=== PATIENT | female | born 1955 | race Caucasian/White ===

== ENCOUNTER 2021-12-03 09:15 | Outpatient (CLI) | payer MEDICARE, BC, SELFPAY | END 2021-12-03 09:16 | disposition home or self-care (01) | PROVIDERS: PCP Family Medicine; Visit Provider Internal Medicine Gastroenterology | DX: Z12.11 Encounter for screening for malignant neoplasm of colon (principal); K57.30 Diverticulosis of large intestine without perforation or abscess without bleeding | CPT/HCPCS: 45378; J2250; J3010 ==

== ENCOUNTER 2021-12-16 07:16 | Emergency (ER) | payer MEDICARE, BC, SELFPAY ==
[2021-12-16 07:31] VITALS: BP 156/83; PULSE 80; RESP 20; TEMP 37.7; O2SAT 96; BMI 45.2
--- NOTE | 2021-12-16 07:58 | ED_ITS ---
HPI - General Adult General Time Seen by Provider: 07:58 Date Seen: 12/16/21 Chief complaint: Dental/Oral/Mouth Injury/Pain Stated complaint: Bleeding from mouth after oral surgery Time Seen by Provider: 12/16/21 07:52 Source: patient Mode of arrival: ambulatory Limitations: no limitations History of Present Illness HPI narrative: The patient is a 58 year white female who has had dental procedure yesterday. She is on Coumadin for atrial fibrillation, she had held for 2 days prior to procedure, related did some bone grafting. Her left jaw. They found some infe ction, she is on antibiotics, she started the half of Coumadin tablet yesterday, and noted bleeding this morning, it seemed to have stopped at this point. No lightheadedness dizziness, or chest pain or breathing problem. Related Data Home Medications Medication Instructions Recorded Confirmed atorvastatin 40 mg tablet mg 12/16/21 lisinopril 30 mg tablet mg 12/16/21 metoprolol tartrate 100 mg tablet mg 12/16/21 warfarin 7.5 mg tablet mg 12/16/21 Allergies Allergy/AdvReac Type Severity Reaction Status Date / Time No Known Drug Allergies Allergy Verified 12/03/21 13:00 Review of Systems Status of ROS: Reports: 6 or more systems reviewed and unremarkable except as noted in History and below [facility], [facility] Medical History Atrial fibrillation High blood pressure Hypercholesteremia Liver cyst Social History Smoking Status: Never smoker How often do you have a drink containing alcohol: 2-3 times a week AUDIT-C Alcohol total score: 3 Non-prescribed substance use: denies use Exam Narrative: Exam Narrative: Objective: The patient has some recent evidence of bleeding around her gumline on the left upper jaw and laterally there appears to be stitches present, there is no arterial bleeding no venous oozing at this point. The patient has had a gauze pack in her mouth area. There is no generalized swelling of her throat, neck is supple Const: Vital Signs, click to edit/add: Vital Signs - 24 hr 12/16/21 07:31 Temperature 99.8 F H Pulse Rate [Pulse Oximeter] 80 Respiratory Rate 20 Blood Pressure [Ri ght Upper Arm] 156/83 H Pulse Oximetry 96 Course Vital Signs Vital signs: Initial Vital Signs Temperature 99.8 F H 12/16/21 07:31 Temperature Source Temporal Artery Scan 12/16/21 07:31 Pulse Rate 80 12/16/21 07:31 Respiratory Rate 20 12/16/21 07:31 Blood Pressure 156/83 H 12/16/21 07:31 Blood Pressure Mean 107 12/16/21 07:31 Blood Pressure Position Supine 12/16/21 07:31 Pulse Oximetry 96 12/16/21 07:31 Oxygen Delivery Method 12/16/21 07:31 Vital Signs Temperature 99.8 F H 12/16/21 07:31 Pulse Rate 80 12/16/21 07:31 Respiratory Rate 20 12/16/21 07:31 Blood Pressure 156/83 H 12/16/21 07:31 Pulse Oximetry 96 12/16/21 07:31 Temperature 99.8 F H 12/16/21 07:31 Pulse Rate 80 12/16/21 07:31 Respiratory Rate 20 12/16/21 07:31 Blood Pressure 156/83 H 12/16/21 07:31 Pulse Oximetry 96 12/16/21 07:31 Medical Decision Making MDM Narrative Medical decision making narrative: The patient pretty complex dental surgery with bone grafting and stitches yesterday, now her bleeding seems of stopped she did take Coumadin last night a half tablet. Will observe in the ED for a period of time she does not bleed further I think preps holding the Coumadin today and then restarting tomorrow would be reasonable. The patient has had no further bleeding, should be sent home with some gauze packs that she can put in cheek area should she have any oozing or other changes, she should return if problems or concerns, hold Coumadin today and tomorrow until she talks or dark regular doctor. Return sooner problems or concerns thanks Discharge Plan Discharge Clinical Impression: Post-op bleeding Patient Disposition: Home w/ Parent or Adult Condition: Stable Additional Instructions: Patient will hold Coumadin today restart half dose tomorrow, call her primary care doctor for further instructions at that time, light activity, light diet Activity Level: Light activity Discharge Diet: Full Liquid Prescriptions: No Action atorvastatin 40 mg tablet 0RF metoprolol tartrate 100 mg tablet 0RF warfarin 7.5 mg tablet 0RF lisinopril 30 mg tablet 0RF Follow Up/Referrals: Sonia Riggins DO [Primary Care Provider] - Stand Alone Forms: AVI[employer] Info Instructions
== END 2021-12-16 08:59 | disposition home or self-care (01) ==
LOC: ED 08:15
PROVIDERS: Emergency Provider Family Medicine; PCP Family Medicine
DX: Z53.8 Procedure and treatment not carried out for other reasons (principal)
CPT/HCPCS: 99281; 99283

== ENCOUNTER 2021-12-16 18:57 | Emergency (ER) | payer MEDICARE, BC, SELFPAY ==
[2021-12-16 19:10] VITALS: BP 138/94; PULSE 90; RESP 14; TEMP 36.9; O2SAT 98; BMI 45.2
[2021-12-16] MEDS: TRANEXAMIC ACID 100 MG/ML INJ 1000 MG TOPICAL (19:36)
--- NOTE | 2021-12-16 19:44 | ED_ITS ---
HPI - General Adult General Time Seen by Provider: 19:44 <Charles Ortega MD - Last Filed: 12/16/21 19:47> Date Seen: 12/16/21 <Charles Ortega MD - Last Filed: 12/16/21 19:47> Chief complaint: Post Op Complication <Charles Ortega MD - Last Filed: 12/16/21 19:47> Stated complaint: BLEEDING FROM MOUTH AFTER ORAL SURGERY <Charles Ortega MD - Last Filed: 12/16/21 19:47> Time Seen by Provider: 12/16/21 19:15 <Charles Ortega MD - Last Filed: 12/16/21 19:47> Source: patient <Charles Ortega MD - Last Filed: 12/16/21 19:47> Mode of arrival: ambulatory <Charles Ortega MD - Last Filed: 12/16/21 19:47> Limitations: no limitations <Charles Ortega MD - Last Filed: 12/16/21 19:47> History of Present Illness HPI narrative: Patient presents with recurrent bleeding her left gums. She had a tooth extraction and some bone grafting by a dentist yesterday. She was seen earlier today and the bleeding seemed to have stopped, over the last hour so it has bled again. She did take her Coumadin half dose today, with but was to hold it after today. Patient denies dizziness or lightheadedness at this time. Please see the prior note from today <Charles Ortega MD - Last Filed: 12/16/21 19:47> Related Data Home medications: Home Medications Medication Instructions Recorded Confirmed atorvastatin 40 mg tablet mg 12/16/21 lisinopril 30 mg tablet mg 12/16/21 metoprolol tartrate 100 mg tablet mg 12/16/21 warfarin 7.5 mg tablet mg 12/16/21 <Charles Ortega MD - Last Filed: 12/16/21 19:47> Allergies/adverse reactions: Allergies Allergy/AdvReac Type Severity Reaction Status Date / Time No Known Drug Allergies Allergy Verified 12/03/21 13:00 <Charles Ortega MD - Last Filed: 12/16/21 19:47> [facility] Medical History: Medical History Atrial fibrillation High blood pressure Hypercholesteremia Liver cyst <Charles Ortega MD - Last Filed: 12/16/21 19:47> Social History: Social History Smoking Status: Never smoker How often do you have a drink containing alcohol: 2-3 times a week AUDIT-C Alcohol total score: 3 Non-prescribed substance use: denies use <Charles Ortega MD - Last Filed: 12/16/21 19:47> Exam Narrative: Exam Narrative: Objective vital signs unremarkable patient is in no apparent distress, she does have a large amount of blood on a 4 x 4 Mild oozing at the upper gum line on the left. Earlier today we did not put any chemicals on the area but at this time I think it would be singh to put some TXA on a gauze pad of put it inner cheek area overlying the left upper gumline and tooth line. Height attempted to call her dentist, was only left with an answer machine and did leave a message for them to call us to give us advice about other like care for this bleeding and bone grafted area. Will also check laboratories and form of coags and a CBC. Will leave the TXA on on gauze for a good period of time, and observe the patient over the next couple of hours. Will pass this on to change of shift next physician. <Charles Ortega MD - Last Filed: 12/16/21 19:47> Const: Vital Signs, click to edit/add: Vital Signs - 24 hr 12/16/21 19:10 Temperature 98.4 F Pulse Rate [Pulse Oximeter] 90 Respiratory Rate 14 Blood Pressure [Ri ght Upper Arm] 138/94 H Pulse Oximetry 98 <Charles Ortega MD - Last Filed: 12/16/21 19:47> Vital Signs, click to edit/add: Vital Signs - 24 hr 12/16/21 19:10 Temperature 98.4 F Pulse Rate [Pulse Oximeter] 90 Respiratory Rate 14 Blood Pressure [Ri ght Upper Arm] 138/94 H Pulse Oximetry 98 <Mony Rahman MD - Last Filed: 12/16/21 22:28> Course Course Hospital Course: Patient had the TXA impregnated packing in place for approximately 2 hours. This was removed and re-examined. There was some very mild oozing around her sutures however there is no active bleeding. Patient was monitored for another 30 minutes after the TXA impregnated gauze was removed and had no active bleeding. At this point we discussed discharge. Patient understands that if it starts to bleed again she needs to put gauze, padding or a towel in the back of the mouth and bite down to provide pressure. She read should stay like this for 30-60 minutes. I also welcome her to return to the ER at any point if she feels concerned about bleeding. She is reassured that her hemoglobin and her INR are within normal and acceptable ranges. Patient did will call her surgeon 1st thing in the morning to follow-up. We did leave more than 1 message with them tonight without a return phone call. Patient was agreeable with everything we discussed and was discharged home in stable condition. <Charles Ortega MD - Last Filed: 12/16/21 19:47> Vital Signs Vital signs: Initial Vital Signs Temperature 98.4 F 12/16/21 19:10 Temperature Source Temporal Artery Scan 12/16/21 19:10 Pulse Rate 90 12/16/21 19:10 Pulse Rhythm 12/16/21 19:10 Respiratory Rate 14 12/16/21 19:10 Blood Pressure 138/94 H 12/16/21 19:10 Blood Pressure Mean 108 12/16/21 19:10 Blood Pressure Position Sitting 12/16/21 19:10 Pulse Oximetry 98 12/16/21 19:10 Oxygen Delivery Method 12/16/21 19:10 Vital Signs Temperature 98.4 F 12/16/21 19:10 Pulse Rate 90 12/16/21 19:10 Respiratory Rate 14 12/16/21 19:10 Blood Pressure 138/94 H 12/16/21 19:10 Pulse Oximetry 98 12/16/21 19:10 Temperature 98.4 F 12/16/21 19:10 Pulse Rate 90 12/16/21 19:10 Respiratory Rate 14 12/16/21 19:10 Blood Pressure 138/94 H 12/16/21 19:10 Pulse Oximetry 98 12/16/21 19:10 <Charles Ortega MD - Last Filed: 12/16/21 19:47> Initial Vital Signs Temperature 98.4 F 12/16/21 19:10 Temperature Source Temporal Artery Scan 12/16/21 19:10 Pulse Rate 90 12/16/21 19:10 Pulse Rhythm 12/16/21 19:10 Respiratory Rate 14 12/16/21 19:10 Blood Pressure 138/94 H 12/16/21 19:10 Blood Pressure Mean 108 12/16/21 19:10 Blood Pressure Position Sitting 12/16/21 19:10 Pulse Oximetry 98 12/16/21 19:10 Oxygen Delivery Method 12/16/21 19:10 Vital Signs Temperature 98.4 F 12/16/21 19:10 Pulse Rate 90 12/16/21 19:10 Respiratory Rate 14 12/16/21 19:10 Blood Pressure 138/94 H 12/16/21 19:10 Pulse Oximetry 98 12/16/21 19:10 Temperature 98.4 F 12/16/21 19:10 Pulse Rate 90 12/16/21 19:10 Respiratory Rate 14 12/16/21 19:10 Blood Pressure 138/94 H 12/16/21 19:10 Pulse Oximetry 98 12/16/21 19:10 <Mony Rahman MD - Last Filed: 12/16/21 22:28> Medical Decision Making MDM Narrative Medical decision making narrative: I think at this this time trying some TXA is appropriate given that the patient is continuing to have bleeding and will attempt to reach her dentist, hopefully they will call back with some help regarding this problem, patient will be kept in the ER until her bleeding has stopped. Will check labs as above. <Charles Ortega MD - Last Filed: 12/16/21 19:47> I think at this this time trying some TXA is appropriate given that the patient is continuing to have bleeding and will attempt to reach her dentist, hopefully they will call back with some help regarding this problem, patient will be kept in the ER until her bleeding has stopped. Will check labs as abov e. <Mony Rahman MD - Last Filed: 12/16/21 22:28> Lab Data Labs: Lab Results 12/16/21 12/16/21 12/16/21 Range/Units 20:00 20:00 20:00 WBC 7.08 (4.50-11.00) K/uL RBC 4.60 (4.00-5.20) m/uL Hgb 13.7 (12.0-16.0) gm/dL Hct 42.7 (33.0-51.0) % MCV 93 (80-100) fL MCH 30 (26-34) pg MCHC 32 (32-36) gm/dL RDW Coeff of Jd 13.8 (11.5-15.5) % Plt Count 200 (140-440) K/uL Neut % (Auto) 69.5 (42.0-72.0) % Lymph % (Auto) 18.8 L (20-44) % Wood % (Auto) 9.3 (0.0-11.0) % Eos % (Auto) 2.1 (0.0-7.0) % Baso % (Auto) 0.3 (0.0-3.0) % Neut # (Auto) 4.92 (1.7-7.0) K/uL Lymph # (Auto) 1.30 (0.90-2.90) K/uL Wood # (Auto) 0.70 (0.00-0.90) K/UL Eos # (Auto) 0.15 (0.00-0.50) K/uL Baso # (Auto) 0.02 (0.00-0.30) K/uL Abs Immat Gran (auto) 0.00 (0.00-0.30) K/uL INR 1.74 H (0.91-1.10) APTT 32 (23-33) Seconds <Charles Ortega MD - Last Filed: 12/16/21 19:47> Lab Results 12/16/21 12/16/21 12/16/21 Range/Units 20:00 20:00 20:00 WBC 7.08 (4.50-11.00) K/uL RBC 4.60 (4.00-5.20) m/uL Hgb 13.7 (12.0-16.0) gm/dL Hct 42.7 (33.0-51.0) % MCV 93 (80-100) fL MCH 30 (26-34) pg MCHC 32 (32-36) gm/dL RDW Coeff of Jd 13.8 (11.5-15.5) % Plt Count 200 (140-440) K/uL Neut % (Auto) 69.5 (42.0-72.0) % Lymph % (Auto) 18.8 L (20-44) % Wood % (Auto) 9.3 (0.0-11.0) % Eos % (Auto) 2.1 (0.0-7.0) % Baso % (Auto) 0.3 (0.0-3.0) % Neut # (Auto) 4.92 (1.7-7.0) K/uL Lymph # (Auto) 1.30 (0.90-2.90) K/uL Wood # (Auto) 0.70 (0.00-0.90) K/UL Eos # (Auto) 0.15 (0.00-0.50) K/uL Baso # (Auto) 0.02 (0.00-0.30) K/uL Abs Immat Gran (auto) 0.00 (0.00-0.30) K/uL INR 1.74 H (0.91-1.10) APTT 32 (23-33) Seconds <Mony Rahman MD - Last Filed: 12/16/21 22:28> Discharge Plan Discharge Clinical Impression: Post-op bleeding <Charles Ortega MD - Last Filed: 12/16/21 19:47> Patient Disposition: Home, Self-Care <Charles Ortega MD - Last Filed: 12/16/21 19:47> Condition: Improved <Charles Ortega MD - Last Filed: 12/16/21 19:47> Additional Instructions: If bleeding starts again, placed a towel or packing in the area and bite hard to apply pressure. Do not removed the packing or towel for at least a 30 minutes. Feel free to return to the ER if you feel uncomfortable or if you feel like the bleeding was too much at home. Follow-up with your doctor 1st thing in the morning. <Charles Ortega MD - Last Filed: 12/16/21 19:47> Prescriptions: No Action atorvastatin 40 mg tablet 0RF metoprolol tartrate 100 mg tablet 0RF warfarin 7.5 mg tablet 0RF lisinopril 30 mg tablet 0RF <Charles Ortega MD - Last Filed: 12/16/21 19:47> Follow Up/Referrals: Sonia Riggins DO [Primary Care Provider] - <Charles Ortega MD - Last Filed: 12/16/21 19:47> Stand Alone Forms: MyHealth Info Instructions <Charles Ortega MD - Last Filed: 12/16/21 19:47>
[2021-12-16 20:14] LABS: Basophils Absolute Auto 0.02 K/uL (0.00-0.30); Basophils Percent Auto 0.3 % (0.0-3.0); Eosinophils Absolute Auto 0.15 K/uL (0.00-0.50); Eosinophils Percent Auto 2.1 % (0.0-7.0); Hematocrit 42.7 % (33.0-51.0); Hemoglobin* 13.7 gm/dL (12.0-16.0); Lymphocytes Percent Auto 18.8 % (20-44); Mean Corpuscular HGB Conc 32 gm/dL (32-36); Mean Corpuscular Hemoglobin 30 pg (26-34); Mean Corpuscular Volume 93 fL (80-100); Monocytes Percent Auto 9.3 % (0.0-11.0); Neutrophils Absolute Auto 4.92 K/uL (1.7-7.0); Neutrophils Percent Auto 69.5 % (42.0-72.0); Platelet Count* 200 K/uL (140-440); RDW Coefficient of Variation % 13.8 % (11.5-15.5); White Blood Count* 7.08 K/uL (4.50-11.00)
[2021-12-16 20:16] LABS: Slide Review Reflex No
[2021-12-16 20:45] LABS: INR 1.74 (0.91-1.10); Prothrombin Time 20.8 Seconds
[2021-12-16 20:56] LABS: Partial Thromboplastin Time* 32 Seconds (23-33)
== END 2021-12-16 22:35 | disposition home or self-care (01) ==
PROVIDERS: Family Medicine; Emergency Provider Family Medicine; PCP Family Medicine
DX: K91.840 Postprocedural hemorrhage of a digestive system organ or structure following a digestive system procedure (principal)
CPT/HCPCS: 36415; 85025; 85610; 85730; 99283; 99284

== ENCOUNTER 2022-07-26 15:17 | Outpatient (CLI) | payer OTHER, SELFPAY ==
--- NOTE | 2022-07-26 15:30 | CRLHL7_ITS ---
For Patients: As a result of the Century Cures Act, medical imaging exams and procedure reports are released immediately into your electronic medical record. You may view this report before your referring provider. If you have questions, please contact your health care provider. HISTORY: Chronic knee pain. TECHNIQUE: MRI left knee without contrast. COMPARISON: None. FINDINGS: Medial compartment: Medial meniscus: Horizontal tear of the posterior horn. There is also indistinct tearing/fraying of the free edge of the posterior horn. Horizontal tear extends into the posterior body. Majority the body is intact. Anterior horn is intact. Articular cartilage: Low-grade partial-thickness (grade 2) cartilage loss the medial femoral condyle and in the medial tibial plateau. Lateral compartment: Lateral meniscus: Complex tear of the anterior horn, body, and posterior horn. Tearing all is the posterior root which is mostly indistinct at the attachment. Body is extruded. Articular cartilage: Full-thickness (grade 4) cartilage loss in the central lateral femoral condyle. High-grade partial-thickness (grade 3) cartilage loss in the lateral tibial plateau. Patellofemoral compartment: Predominantly high-grade partial-thickness (grade 3) cartilage loss in the lateral patellar facet with focal full-thickness (grade 4) cartilage loss. No trochlear cartilage defects. Ligaments: ACL: Intact. PCL: Intact. MCL: Intact. Lateral ligament complex: Intact. Extensor mechanism: Distal quadriceps and patellar tendons are intact. Medial and lateral patellar restraints are intact. No patellar subluxation. Joint space: Trace effusion. No joint bodies. Bones and soft tissues: No fracture. No marrow replacing process. Small popliteal cyst. Distal iliotibial band is normal. IMPRESSION: 1. Tear of the medial meniscus. 2. Tear of the lateral meniscus. 3. 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 4. No ligament tear. No fracture. Dictated by Franco Becerra MD @ 07/29/2022 12:07:46 PM (Electronically Signed)
== END 2022-07-26 15:18 | disposition home or self-care (01) ==
PROVIDERS: PCP Family Medicine; Visit Provider Family Medicine
DX: M25.562 Pain in left knee (principal); S83.282A Other tear of lateral meniscus, current injury, left knee, initial encounter; S83.242A Other tear of medial meniscus, current injury, left knee, initial encounter; M17.12 Unilateral primary osteoarthritis, left knee; G89.29 Other chronic pain
CPT/HCPCS: 73721

== ENCOUNTER 2023-01-03 13:45 | Outpatient (RCR) | payer OTHER, SELFPAY | END 2023-05-03 23:59 | disposition home or self-care (01) | PROVIDERS: PCP Family Medicine; Visit Provider Family Medicine | DX: M17.12 Unilateral primary osteoarthritis, left knee (principal); M23.301 Other meniscus derangements, unspecified lateral meniscus, left knee; M23.204 Derangement of unspecified medial meniscus due to old tear or injury, left knee; M25.562 Pain in left knee; R26.9 Unspecified abnormalities of gait and mobility; R53.1 Weakness; Z51.89 Encounter for other specified aftercare | CPT/HCPCS: 97110; 97161; 97530 ==

== ENCOUNTER 2023-08-08 21:18 | Emergency (ER) | payer OTHER, SELFPAY ==
[2023-08-08 21:36] VITALS: BP 165/95; PULSE 87; RESP 18; TEMP 36.7; O2SAT 99; BMI 35.4
[2023-08-08] MEDS: BENZOCAINE 20 % SPRAY 1 EACH NOSTRIL-R (22:15)
[2023-08-08] MEDS: SILVER NITRATE APPLICATOR 1 EACH STICK..EA. TOPICAL (22:20)
[2023-08-08] MEDS: OXYMETAZOLINE 0.05% NASAL SPRAY 1 SPRAY NOSTRIL-B (22:30)
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
[2023-08-08 22:59] LABS: INR 2.43 (0.91-1.10); Prothrombin Time 28.2 Seconds
[2023-08-08 23:25] VITALS: BP 154/84; PULSE 81; RESP 18; TEMP 36.7; O2SAT 99
[2023-08-08 23:26] VITALS: BP 154/84; PULSE 81; RESP 18; TEMP 36.7
== END 2023-08-08 23:27 | disposition home or self-care (01) ==
PROVIDERS: Emergency Provider Emergency Medicine; PCP Family Medicine
DX: R04.0 Epistaxis (principal)
CPT/HCPCS: 30901; 36415; 85610; 99283; 99284; A9270

== ENCOUNTER 2023-08-10 14:35 | Emergency (ER) | payer OTHER, SELFPAY ==
[2023-08-10 14:41] VITALS: BP 152/95; PULSE 84; RESP 16; TEMP 36.5; O2SAT 100; BMI 36.5
[2023-08-10] MEDS: BENZOCAINE 20 % SPRAY 1 EACH NOSTRIL-R (14:55)
[2023-08-10] MEDS: OXYMETAZOLINE 0.05% NASAL SPRAY 1 SPRAY NOSTRIL-B (14:55)
--- NOTE | 2023-08-10 15:35 | ED.GENADULT ---
HPI - General Adult General Date Seen: 08/10/23 Chief complaint: Epistaxis/Nosebleed Stated complaint: Nose wont stop bleeding-was here Friday Time Seen by Provider: 08/10/23 14:43 Source: patient and RN notes reviewed Mode of arrival: ambulatory Limitations: no limitations and physical limitation History of Present Illness HPI narrative: Patient is a 68-year-old woman who I saw 2 days ago for nose bleed. She does take Coumadin for atrial fibrillation. I saw her Friday evening when she was having bleeding from the right nares. We did get that stopped and then cauterized with silver nitrate. She tells me she was doing well until earlier today when she bent forward to pick something up and had recurrence of bleeding. She was able to get it stopped initially but it rebled again and this time she has not been able to get it stopped. She held her Coumadin on Friday night but took it again last night. Related Data Home Medications Medication Instructions Recorded Confirmed atorvastatin 40 mg tablet 40 mg PO HS 12/16/21 08/08/23 lisinopril 30 mg tablet 30 mg PO DAILY 12/16/21 08/08/23 metoprolol tartrate 100 mg tablet 100 mg PO BID 12/16/21 08/08/23 warfarin 7.5 mg tablet 7.5 mg PO DIRECTED 12/16/21 08/08/23 semaglutide 1 mg/dose (4 mg/3 mL) 1 mg subcut DIRECTED 08/08/23 08/08/23 subcutaneous pen injector (Ozempic) Allergies Allergy/AdvReac Type Severity Reaction Status Date / Time No Known Drug Allergies Allergy Verified 08/10/23 14:41 [facility] Medical History Liver cyst ?K76.89 - Other specified diseases of liver (ICD-10) Hypercholesteremia ?E78.00 - Pure hypercholesterolemia, unspecified (ICD-10) High blood pressure ?I10 - Essential (primary) hypertension (ICD-10) Atrial fibrillation ?I48.91 - Unspecified atrial fibrillation (ICD-10) Surgical History H/O total hysterectomy (~2018) ?Z90.710 - Acquired absence of both cervix and uterus (ICD-10) H/O removal of cyst (01/23/21) ?Z98.890 - Other specified postprocedural states (ICD-10) Social History Smoking Status: Never smoker Second hand tobacco smoke exposure: No How often do you have a drink containing alcohol: 4 or more times a week How many standard drinks containing alcohol do you have on a typical day: 1 or 2 AUDIT-C Alcohol total score: 4 Non-prescribed substance use: denies use Exam Narrative: Exam Narrative: Vital signs reviewed In general, alert, well-appearing woman. She is holding her nose, no active bleeding with pressure. ENT: There is brisk bleeding from the right nares with some overflow bleeding from the left naris. The left nasal septum is however still normal without evidence of bleeding from that side. Const: Vital Signs, click to edit/add: Vital Signs - 24 hr 08/10/23 14:41 Temperature 97.7 F Pulse Rate [Pulse Oximeter] 84 Respiratory Rate 16 Blood Pressure [Le ft Upper Arm] 152/95 H Pulse Oximetry 100 Oxygen Delivery Me thod Room Air Documenting provider has reviewed patient's vital signs: yes Course Course ED Course: I recommended at this time that we proceed with nasal packing, she agreed to proceed. The right nares was anesthetized using Hurricaine spray. I then sprayed some Afrin on the nasal septum, placed a Merocel pack which I trimmed slightly as I do think this is an anterior bleed. This was infused with Afrin. She does not have any further active bleeding. Watched for about 45 minutes following packing, and aside from just a little bit of oozing from the packing itself, there is no active bleeding, nothing in the back of her throat. She tolerated all this well, no immediate complication. Given her Coumadin, I have recommended that the packing stay in for 4-5 days. I have given her the phone number for ENT if she would like to schedule with Dr. Raymond, otherwise she could see her regular doctor at [facility]. If she has recurrence of brisk bleeding, advised that she can apply pressure with the packing in, if it does not respond to pressure for 20-30 minutes return to the ER at any time. Given that she will have this in for several days, I am prescribing a few days of an antibiotic. Vital Signs Vital signs: Initial Vital Signs Temperature 97.7 F 08/10/23 14:41 Temperature Source Temporal Artery Scan 08/10/23 14:41 Pulse Rate 84 08/10/23 14:41 Respiratory Rate 16 08/10/23 14:41 Blood Pressure 152/95 H 08/10/23 14:41 Blood Pressure Mean 114 H 08/10/23 14:41 Blood Pressure Position High-Fowlers 08/10/23 14:41 Pulse Oximetry 100 08/10/23 14:41 Oxygen Delivery Method Room Air 08/10/23 14:41 Vital Signs Temperature 97.7 F 08/10/23 14:41 Pulse Rate 84 08/10/23 14:41 Respiratory Rate 16 08/10/23 14:41 Blood Pressure 152/95 H 08/10/23 14:41 Pulse Oximetry 100 08/10/23 14:41 Oxygen Delivery Method Room Air 08/10/23 14:41 Temperature 97.7 F 08/10/23 14:41 Pulse Rate 84 08/10/23 14:41 Respiratory Rate 16 08/10/23 14:41 Blood Pressure 152/95 H 08/10/23 14:41 Pulse Oximetry 100 08/10/23 14:41 Oxygen Delivery Method Room Air 08/10/23 14:41 Medications Administered Medications: Discontinued Medications Generic Name Dose Route Start Last Admin Trade Name Freq PRN Reason Stop Dose Admin Benzocaine 1 each 08/10/23 14:52 08/10/23 14:55 Benzocaine 20 % [place] NOSTRIL-R 08/10/23 14:53 1 each ONCE ONE Administration Oxymetazoline HCl 1 spray 08/10/23 14:52 08/10/23 14:55 Oxymetazoline 0.05% Nasal [place] NOSTRIL-B 1 spray BID PRN Administration Discharge Plan Discharge Clinical Impression: Epistaxis Patient Disposition: Home, Self-Care Condition: Improved Instructions: Nosebleed (ED) Additional Instructions: Antibiotic as prescribed to help prevent sinus infection.I would recommend the packing be removed on or Friday of this week. If you do develop more brisk bleeding, you can apply pressure with the packing in place again 20-30 minutes and if it does not stop, return to the ER. My hope is that with this packing in you will only see small amounts of seepage from the packing itself. You can follow-up in your regular clinic or ENT, to schedule with Dr. Raymond. Prescriptions: No Action atorvastatin 40 mg tablet 40 mg PO HS metoprolol tartrate 100 mg tablet 100 mg PO BID warfarin 7.5 mg tablet 7.5 mg PO DIRECTED lisinopril 30 mg tablet 30 mg PO DAILY Ozempic 1 mg/dose (4 mg/3 mL) pen injector 1 mg subcut DIRECTED Follow Up/Referrals: Sonia Riggins DO [Primary Care Provider] - Stand Alone Forms: [employer] Info Instructions
== END 2023-08-10 16:00 | disposition home or self-care (01) ==
PROVIDERS: Emergency Provider Emergency Medicine; PCP Family Medicine
DX: R04.0 Epistaxis (principal)
CPT/HCPCS: 30901; 99283; 99284; A9270